=== PATIENT | female | born 1955 | race Hispanic/Latino ===

== ENCOUNTER 2017-01-21 05:51 | Day surgery (SDC) | payer BC ==
--- NOTE | 2017-01-18 08:47 | Anesthesia Consultation ---
Anesthesia Consult and Med Hx Date of service: 01/18/17 - Airway Anesthetic Teeth Evaluation: Good ROM Head & Neck: Adequate Mental/Hyoid Distance: Adequate Mallampati Class: Class II Intubation Access Assessment: Probably Good - Pulmonary Exam CTA: Yes - Cardiac Exam Cardiac Exam: RRR - Pre-Operative Health Status ASA Pre-Surgery Classification: ASA2 Proposed Anesthetic Plan: General - Pulmonary Hx Smoking: No Hx Sleep Apnea: Yes (DX SLEEP APNEA WITH CPAP USE.) - Cardiovascular System Hx Hypertension: No - Endocrine Hx Non-Insulin Dependent Diabetes: Yes - Hematic Hx Anemia: Yes - Other Systems Hx Cancer: Yes (RECTAL-TX WITH SURGERY & CHEMO 08/2016)
[2017-01-18 08:49] LABS: Basophils % (Auto) 0.6 % (0.0-1.8); Eosinophils % (Auto) 3.5 % (0.0-4.3); Hematocrit 37.7 % (30.3-42.9); Mean Corpuscular HGB Conc 35 % (30-34); Mean Corpuscular Hemoglobin 30 pg (28-32); Mean Corpuscular Volume 86 fl (79-97); Platelet Count 195 K/mm3 (140-440); Red Blood Count 4.38 M/mm3 (3.65-5.03); Red Cell Distribution Width 13.7 % (13.2-15.2); White Blood Count 5.8 K/mm3 (4.5-11.0)
[2017-01-18 09:01] LABS: Calcium 9.9 mg/dL (8.4-10.2); Potassium 4.5 mmol/L (3.6-5.0)
[2017-01-21] MEDS ORDERED: PEPCID PO NR (06:00)
[2017-01-21] MEDS ORDERED: TRANSDERM-SCOP TD NR (06:00)
[2017-01-21] MEDS ORDERED: NACL 0.9% 1000 ML 1,000 ML IV SCH (06:00)
[2017-01-21] MEDS ORDERED: VERSED IV NR (06:00)
[2017-01-21] MEDS ORDERED: DIPRIVAN 10 MG/ML IV ONE (06:32)
[2017-01-21] MEDS ORDERED: XYLOCAINE MPF 2% ONE (06:32)
[2017-01-21] MEDS ORDERED: SUBLIMAZE ONE ×2 (06:32→06:38)
[2017-01-21] MEDS ORDERED: NACL BACTERIOSTATIC INFILTRATI ONE (06:52)
--- NOTE | 2017-01-21 06:56 | Anesthesia Day of Surgery ---
Anesthesia Day of Surgery - Day of Surgery Patient Examined: Yes Patient H&P Reviewed: Yes Patient is NPO: Yes
[2017-01-21] MEDS ORDERED: PERCOCET 5/325 PO PRN (06:57)
[2017-01-21] MEDS ORDERED: DILAUDID IV PRN (06:57)
[2017-01-21] MEDS ORDERED: WATER FOR IRRIG STERILE IR ONE ×2 (08:30→08:46)
[2017-01-21] MEDS ORDERED: OMNIPAQUE 300 MG/50 ML (CATH LAB) IV ONE ×2 (08:30→08:46)
[2017-01-21] MEDS ORDERED: ZOFRAN ONE (08:32)
[2017-01-21] MEDS ORDERED: ANCEF/STERILE WATER 2 GM/20 ML IV NR (08:45)
--- NOTE | 2017-01-21 09:38 | Short Stay Summary ---
Short Stay Documentation Date of service: 01/21/17 - History H&P: obtained from office - Allergies and Medications Current Medications: Allergies Sulfa (Sulfonamide Antibiotics) Allergy (Verified 01/11/17 09:13) Hives sulfamethoxazole [From Bactrim] Adverse Reaction (Verified 01/18/17 08:52) Hives trimethoprim [From Bactrim] Adverse Reaction (Verified 01/18/17 08:52) Hives Home Medications Medication Instructions Recorded Confirmed Last Taken Type Advocare Carb Ease 1 tab PO DAILY 01/18/17 01/21/17 01/14/17 History Alendronate Sodium [Fosamax] 70 mg PO QWEEK 01/18/17 01/21/17 01/20/17 History Amino Acid Catalyst 3 tab PO TID 01/18/17 01/21/17 01/14/17 History Ascorbic Acid [Vitamin C] 500 mg PO BID 01/18/17 01/21/17 01/20/17 History Aspirin [Adult Low Dose Aspirin EC] 81 mg PO DAILY 01/18/17 01/21/17 01/14/17 History Cannibas Oil 9 drop SUBLINGUAL DAILY 01/18/17 01/21/17 01/20/17 History Cinnamon 1,000 mg PO BID 01/18/17 01/21/17 01/14/17 History Correctol 1 cap PO QHS PRN 01/18/17 01/21/17 01/19/17 History Docusate Sodium [Colace] 100 mg PO BID 01/18/17 01/18/17 Unknown History Fibro-Trim 3 tab PO TID 01/18/17 01/21/17 01/14/17 History Frankinsense 2 drop SUBLINGUAL BID 01/18/17 01/21/17 01/20/17 History Gemfibrozil [Lopid] 600 mg PO BID 01/18/17 01/21/17 01/20/17 History L. Acidophilus/Pectin, Stone 1 cap PO DAILY 01/18/17 01/18/17 Unknown History [Acidophilus Probiotic Capsule] Magnesium Oxide [Magnesium] 500 mg PO DAILY 01/18/17 01/21/17 01/20/17 History Multivit-Min/FA/Lycopen/Lutein 1 each PO DAILY 01/18/17 01/21/17 01/20/17 History [Centrum Silver Tablet] Multivits Min/Iron/FA/Herb#186 1 tab PO DAILY 01/18/17 01/21/17 01/20/17 History [Hair, Skin and Nails Caplet] Omega3,5,6,7,9 No.1/[place] Oil 2 tab PO QHS 01/18/17 01/21/17 01/14/17 History [Complete [place] Softgel] Phenazopyridine HCl [Azo Urinary 1 tab PO PRN PRN 01/18/17 01/18/17 Unknown History Pain Relief] Phenylephrine/Dm/Acetaminop/GG 1 tab PO PRN PRN 01/18/17 01/21/17 01/07/17 History [Kro Mucus Relief Cold-Flu Cplt] Turmeric Root Extract [Turmeric] 500 mg PO DAILY 01/18/17 01/21/17 01/14/17 History Vitamin B Complex & Vit C No.4 1 tab PO BID 01/18/17 01/21/17 01/20/17 History [Super B Complex] Vitamin E 400 unit PO DAILY 01/18/17 01/21/17 01/14/17 History glipiZIDE [Glucotrol] 7.5 mg PO QDAY 01/18/17 01/21/17 01/20/17 History Active Medications Cefazolin Sodium (Ancef/Sterile Water 2 Gm/20 Ml) 2 gm IV PREOP NR Stop: 01/21/17 23:59 Famotidine (Pepcid) 20 mg PO PREOP NR Stop: 01/21/17 23:59 Last Admin: 01/21/17 06:49 Dose: 20 mg Hydromorphone HCl (Dilaudid) 0.5 mg IV Q10MIN PRN PRN Reason: Pain , Severe (7-10) Stop: 01/24/17 06:58 Sodium Chloride (Nacl 0.9% 1000 Ml) 1,000 mls @ 100 mls/hr IV DIRECT FRIEDA Last Admin: 01/21/17 07:05 Dose: 100 mls/hr Midazolam HCl (Versed) 2 mg IV PREOP NR Stop: 01/21/17 23:59 Last Admin: 01/21/17 06:49 Dose: 2 mg Scopolamine (Transderm-Scop) 1 each TD PREOP NR Stop: 01/24/17 05:59 Last Admin: 01/21/17 06:49 Dose: 1 each - Brief post op/procedure progress note Date of procedure: 01/21/17 Pre-op diagnosis: left hydr Post-op diagnosis: same Procedure: left urs, celena rpg, cyst Anesthesia: GETA Findings: scar Surgeon: EDUARDO MCCABE Estimated blood loss: minimal Pathology: none Condition: stable - Hospital course Hospital course: orpacu home - Disposition Condition at discharge: Good Short Stay Discharge Plan Activity: advance as tolerated Diet: advance as tolerated Follow up with: EDUARDO MCCABE MD [Staff Physician] - 7 Days
--- NOTE | 2017-01-21 10:21 | Post Anesthesia Evaluation ---
- Post Anesthesia Evaluation Patient Participated: Yes Airway Patent: Yes Stable Respiratory Function: Yes Nausea/Vomiting: No Temp > 96.8F: Yes Pain Manageable: Yes Adequeate Hydration: Yes Anesthesia Complications: No Block Receding Appropriately: Not Applicable Patient on Ventilator: No
[2017-01-21] MEDS ORDERED: PERCOCET 5/325 PO ONE (10:47)
[2017-01-21 11:59] VITALS: BP 116/70
--- NOTE | 2017-01-21 16:28 | Fluoroscopy Report ---
Retrograde pyelogram: The precontrast images show no calculus. Injection of contrast into the distal right ureter demonstrates a normal ureter and intrarenal collecting system. No filling defects or displacement. Injection of contrast on the left terminates just below the left SI joint. A wire was passed to that location along with a ureteroscope. No contrast injected and no images above this level.
--- NOTE | 2017-01-27 10:11 | Operative Report ---
PREOPERATIVE DIAGNOSIS: Chronic left hydronephrosis with poorly functioning left kidney. POSTOPERATIVE DIAGNOSIS: Chronic left hydronephrosis with poorly functioning left kidney. PROCEDURE: Cystoscopy, bilateral RPG, left ureteroscopy. SURGEON: Alfredo Weiss MD ANESTHESIA: General. SPECIMENS: None. ESTIMATED BLOOD LOSS: Minimal. COMPLICATIONS: None. FINDINGS: On visualization, there was a blind ending ureter just below the bony pelvis, likely close to the crossing iliac vessels with appearance of no papillary or no erythema appearance more looked like just a scar tissue with obstruction, similar appearance to a stricture that you would see in a similar appearance to when you would see similar to a urethral stricture, but just a smaller caliber where it slowly narrow to a scar tissue, which was wide at this point. CLINICAL INDICATIONS: Counseled RCBA, antibiotics, SCDs. The patient has a history of having a rectosigmoid cancer with surgical resection in approximately February-March, she has had chronic hydro, was evaluated by us, when she had a PET scan with a hydro. A nuclear renal scan found left 4% function. Given chronology it seemed after her treatments as when she developed a slowly progressive hydro. At this point, she was counseled on options, likelihood of ureteral cancer, possibilities of urothelial cancer or other incidence given the clinical history with the likely etiologies were counseled on options including open evaluation and open surgeries, cystoscopic percutaneous and all were discussed. She is also counseled on option of nephrostomy tube and counseled on option of nephrostomy tube placement to see it would regain any function versus scheduling a this procedure at a later date for evaluation. She understood the likelihood of recovery of function when the finding different possibilities and atypical or unexpected results. She desired to proceed. DESCRIPTION OF PROCEDURE: The patient was transferred to OR suite, was placed in the supine position, anesthesia begun, dorsal lithotomy, prepped and draped in standard fashion. A 22-Spanish scope passed, normal. Pancystoscopy 30 and 70 lens, no bladder tumors were visualized. Right retrograde pyelogram 8-Spanish cone-tipped catheter, normal right distal ureter, proximal ureter, renal pelvis, calyces. No filling defects or other abnormality. Left retrograde demonstrated a complete occlusion just under the bony pelvis. Of note, prior to this, the fluoroscopy, there was no significant during the surgery, they must have not used any significant radiopaque material. No clips were visualized and no significant clips or other things were visualized, so I used other techniques for there which are likely radiopaque and not visible. At this point, we attempted passing a wire, unable to pass the wire beyond this obstructed point, of note, there was no filling type of defect or tumor type defect. At this point, we elected to go ahead and pass a rigid scope gently we kept the wire up to ____ to the obstruction. We were unable to get up all the way. We then passed a flexible scope over the wire. No visible urothelial abnormalities, bleeding for a short period of time we were able to get the scope all the way up to the obstruction. There is definitely on appearance a scar tissue type appearance, comparable to what we see when there is a urethral stricture with obstruction with no opening visualized. We inspected this, there is definitely no erythema, no papillary areas that looked completely obstructed just looked like scar tissue. Of course the manipulation of the scope did pull down a little bit and we were unable to pass this back up to this area due to the caliber the ureter. So at this point, we were unable to get the scope in that area to manipulate any tissue or anything like that for any tissue or other procedure. Of note, on the PET scan, there was no uptake and no abnormality at all in this area. At this point, the scope was withdrawn. A Martínez catheter was placed. Exam under anesthesia, no palpable urethral masses. The patient was awakened and transferred to the PACU in good and stable condition. JOB# [id number]/NTS
== END 2017-01-21 11:40 | disposition home or self-care (01) ==
LOC: OR 05:51
PROVIDERS: ATTEND Urology
DX: N13.39 Other hydronephrosis (principal); G47.30 Sleep apnea, unspecified; E11.9 Type 2 diabetes mellitus without complications; D64.9 Anemia, unspecified; Z85.048 Personal history of other malignant neoplasm of rectum, rectosigmoid junction, and anus; Z88.2 Allergy status to sulfonamides; Z80.9 Family history of malignant neoplasm, unspecified; Z82.49 Family history of ischemic heart disease and other diseases of the circulatory system; Z83.3 Family history of diabetes mellitus; Z84.1 Family history of disorders of kidney and ureter
CPT/HCPCS: 36415; 52005; 74420; 80048; 82962; 85025; A4217; C1758; C1769; J2250; J2405; J2704; J3010; J7030; Q9967